=== PATIENT | male | born 1960 | race Native Hawaiian/Other Pacific Islander ===

== ENCOUNTER 2019-10-03 07:40 | Day surgery (SDC) | payer BC, OTHER ==
[2019-10-03 08:28] LABS: PLATELET COUNT 170 K/uL (142-355)
[2019-10-03 08:38] LABS: POTASSIUM 4.3 mmol/L (3.6-5.2)
[2019-10-03 08:42] LABS: PARTIAL THROMBOPLASTIN TIME 32.3 SECONDS (24.5-33.6)
== END 2019-10-03 10:30 | disposition home or self-care (01) ==
LOC: OR 07:40
PROVIDERS: Pain Medicine Interventional Pain Medicine
PROC: 3E0R33Z Introduction of Anti-inflammatory into Spinal Canal, Percutaneous Approach (ICD-10-PCS; principal; 2019-10-03)
PROC: B01BYZZ Fluoroscopy of Spinal Cord using Other Contrast (ICD-10-PCS; 2019-10-03)
DX: M50.123 Cervical disc disorder at C6-C7 level with radiculopathy (principal)
CPT/HCPCS: 80053; 85027; 85610; 85730; J1020; J2001; J2250; J2405; J2704

== ENCOUNTER 2019-10-24 07:36 | Day surgery (SDC) | payer OTHER, BC ==
[2019-10-24 08:48] LABS: PLATELET COUNT 220 K/uL (142-355)
[2019-10-24 08:56] LABS: POTASSIUM 3.8 mmol/L (3.6-5.2)
[2019-10-24 09:06] LABS: PARTIAL THROMBOPLASTIN TIME 27.7 SECONDS (24.5-33.6)
== END 2019-10-24 10:03 | disposition home or self-care (01) ==
LOC: OR 07:36
PROVIDERS: Pain Medicine Interventional Pain Medicine
PROC: 3E0R33Z Introduction of Anti-inflammatory into Spinal Canal, Percutaneous Approach (ICD-10-PCS; principal; 2019-10-24)
PROC: B01BYZZ Fluoroscopy of Spinal Cord using Other Contrast (ICD-10-PCS; 2019-10-24)
DX: M50.123 Cervical disc disorder at C6-C7 level with radiculopathy (principal); E07.89 Other specified disorders of thyroid
CPT/HCPCS: 80053; 85027; 85610; 85730; J1020; J2001; J2250; J2704

== ENCOUNTER 2020-01-09 08:43 | Day surgery (SDC) | payer OTHER, BC ==
[2020-01-09 09:21] LABS: PLATELET COUNT 191 K/uL (142-355)
[2020-01-09 09:40] LABS: POTASSIUM 3.3 mmol/L (3.6-5.2)
== END 2020-01-09 11:40 | disposition home or self-care (01) ==
LOC: OR 08:43
PROVIDERS: Pain Medicine Interventional Pain Medicine
PROC: 3E0R33Z Introduction of Anti-inflammatory into Spinal Canal, Percutaneous Approach (ICD-10-PCS; principal; 2020-01-09)
PROC: B01BYZZ Fluoroscopy of Spinal Cord using Other Contrast (ICD-10-PCS; 2020-01-09)
DX: M51.16 Intervertebral disc disorders with radiculopathy, lumbar region (principal)
CPT/HCPCS: 80053; 85027; J1020; J2001; J2250; J2405; J2704; J2765

== ENCOUNTER 2020-05-07 08:23 | Day surgery (SDC) | payer OTHER, BC ==
[~2020-05-07] VITALS: Ht 30.5 cm; Wt 0.5 kg
[2020-05-07 09:46] LABS: POTASSIUM 4.5 mmol/L (3.6-5.2)
[2020-05-07 09:47] LABS: PLATELET COUNT 208 K/uL (142-355)
[2020-05-07 09:53] LABS: PARTIAL THROMBOPLASTIN TIME 25.9 SECONDS (24.5-33.6)
== END 2020-05-07 12:08 | disposition home or self-care (01) ==
LOC: OR 08:23
PROVIDERS: Pain Medicine Interventional Pain Medicine
PROC: 3E0R33Z Introduction of Anti-inflammatory into Spinal Canal, Percutaneous Approach (ICD-10-PCS; principal; 2020-05-07)
PROC: B01BYZZ Fluoroscopy of Spinal Cord using Other Contrast (ICD-10-PCS; 2020-05-07)
DX: M51.17 Intervertebral disc disorders with radiculopathy, lumbosacral region (principal); M79.605 Pain in left leg; M79.604 Pain in right leg
CPT/HCPCS: 80053; 85027; 85610; 85730; J1020; J2250; J2704; J3490